=== PATIENT | male | born 1970 | race African-American/Black ===

== ENCOUNTER 2023-05-30 10:56 | Inpatient (IN) | payer MEDICAID ==
[~2023-05-30] VITALS: Ht 188 cm; Wt 127.0 kg
[~2023-05-30 10:56] MED LIST: HYDR-4174 PO; LABE200T56 PO; NIFE-129 PO
[2023-05-30] MEDS ORDERED: ASPI-1450 PO (11:02)
[2023-05-30] MEDS ORDERED: LABETALOL HCL 200 MG TABLET PO ONE (11:30)
[2023-05-30] MEDS ORDERED: HydrALAZINE HCL 20 MG/ML VIAL IVP ONE (11:30)
[2023-05-30] MEDS ORDERED: NIFEdipine 60 MG ER TABLET PO ONE (11:30)
[2023-05-30 11:41] LABS: BASOPHILS % (AUTO) 0.9 % (0.0-2.0); EOSINOPHILS % (AUTO) 1.8 % (1.0-6.0); HEMATOCRIT 39.8 % (41-53); HEMOGLOBIN 12.6 g/dL (13.5-17.5); LYMPHOCYTES % (AUTO) 32.4 % (22.0-44.0); MEAN CORPUSCULAR HEMOGLOBIN 24.4 pg (26.0-34.0); MEAN CORPUSCULAR HGB CONC 31.7 G/dL (31.0-37.0); MEAN CORPUSCULAR VOLUME 77 fL (80-100); MONOCYTES # (AUTO) 0.6 K/uL (0.1-1.0); MONOCYTES % (AUTO) 9.5 % (2.0-9.0); NEUTROPHILS # (AUTO) 3.5 K/uL (1.8-7.7); NEUTROPHILS % (AUTO) 55.4 % (40.0-70.0); PLATELET COUNT (AUTO) 156 K/uL (150-450); RED BLOOD CELL COUNT(AUTO) 5.18 MIL/uL (4.50-5.90); RED CELL DISTRIBUTION WIDTH 13.2 % (11.5-14.5); WHITE BLOOD COUNT (AUTO) 6.3 K/uL (4.5-11.0)
[2023-05-30 11:51] LABS: CALCIUM, TOTAL 8.3 mg/dL (8.8-10.5); CREATININE 1.54 mg/dL (0.60-1.30); POTASSIUM 3.2 mmol/L (3.5-5.1)
[2023-05-30 11:54] LABS: COVID AG,FIA SOURCE NASAL SWAB
[2023-05-30 12:14] LABS: SARS-COV2 (COVID) ANTIGEN,FIA Negative (Negative)
[2023-05-30] MEDS ORDERED: 0.9% SODIUM CHLORIDE 10 ML SYRINGE IVP PRN (12:45)
[2023-05-30] MEDS ORDERED: ACETAMINOPHEN 325 MG TABLET PO PRN ×2 (12:45)
[2023-05-30] MEDS ORDERED: ONDANSETRON HCL 4 MG/2 ML VIAL IVP PRN ×2 (12:45)
[2023-05-30] MEDS ORDERED: ENALAPRILAT DIHYDRATE 1.25 MG/ML VIAL IVP PRN (12:45)
[2023-05-30] MEDS ORDERED: POTASSIUM CHLORIDE 20 MEQ ER TABLET PO ONE (12:45)
[2023-05-30 15:30] VITALS: BP 155/92; PULSE 86; RESP 20; TEMP 98.1
[2023-05-30 17:54] LABS: CALCIUM, TOTAL 8.7 mg/dL (8.8-10.5); CREATININE 1.61 mg/dL (0.60-1.30); POTASSIUM 3.4 mmol/L (3.5-5.1)
[2023-05-30] MEDS ORDERED: ENALAPRILAT DIHYDRATE 2.5 MG/2 ML VIAL IVP PRN (20:00)
[2023-05-30] MEDS: LABETALOL HCL 200 MG TABLET PO SCH (20:24)
[2023-05-30 20:28] VITALS: BP 169/113; PULSE 84; RESP 18; TEMP 97.8
[2023-05-31] VITALS: BP 146/86; PULSE 87; RESP 16; TEMP 97.9
[2023-05-31 04:00] VITALS: BP 160/98; PULSE 82; RESP 18; TEMP 97.7
[2023-05-31 07:05] LABS: BASOPHILS % (AUTO) 0.7 % (0.0-2.0); EOSINOPHILS % (AUTO) 2.1 % (1.0-6.0); HEMATOCRIT 38.8 % (41-53); HEMOGLOBIN 12.3 g/dL (13.5-17.5); LYMPHOCYTES # (AUTO) 2.4 K/uL (1.0-4.8); LYMPHOCYTES % (AUTO) 32.1 % (22.0-44.0); MEAN CORPUSCULAR HEMOGLOBIN 24.6 pg (26.0-34.0); MEAN CORPUSCULAR HGB CONC 31.7 G/dL (31.0-37.0); MEAN CORPUSCULAR VOLUME 78 fL (80-100); MONOCYTES # (AUTO) 0.9 K/uL (0.1-1.0); MONOCYTES % (AUTO) 11.8 % (2.0-9.0); NEUTROPHILS % (AUTO) 53.3 % (40.0-70.0); PLATELET COUNT (AUTO) 168 K/uL (150-450); RED CELL DISTRIBUTION WIDTH 13.2 % (11.5-14.5); WHITE BLOOD COUNT (AUTO) 7.5 K/uL (4.5-11.0)
[2023-05-31 07:27] LABS: ALANINE AMINOTRANSFERASE 18 U/L (12-78); ALKALINE PHOSPHATASE 70 U/L (46-116); ANION GAP 6 mmol/L (8-16); ASPARTATE AMINOTRANSFERASE 21 U/L (15-37); BILIRUBIN,TOTAL 0.6 mg/dL (0.1-1.0); CALCIUM, TOTAL 8.3 mg/dL (8.8-10.5); CARBON DIOXIDE 28 mmol/L (22-29); CHLORIDE 105 mmol/L (98-107); CREATININE 1.37 mg/dL (0.60-1.30); GLOMERULAR FILTR. RATE CALC > 60 mL/min (>60); GLUCOSE,RANDOM 75 mg/dL (70-110); SODIUM SERUM 139 mmol/L (136-145); TOTAL PROTEIN, SERUM 6.6 g/dL (6.4-8.2); UREA NITROGEN, BLOOD 18 mg/dL (7-18)
[2023-05-31] MEDS: SODIUM CHLORIDE 0.45% 1,000 ML IV ONE ×2 (08:09→08:14)
[2023-05-31] MEDS: LABETALOL HCL 200 MG TABLET PO SCH (08:09)
[2023-05-31 08:19] VITALS: BP 183/95; PULSE 78; RESP 20; TEMP 97.9
[2023-05-31] MEDS ORDERED: LOSARTAN POTASSIUM 25 MG TABLET PO SCH (09:00)
[2023-05-31] MEDS ORDERED: NIFEdipine 60 MG ER TABLET PO SCH (09:00)
[2023-05-31 11:55] VITALS: BP 152/92; PULSE 76; RESP 18; TEMP 98.4
[2023-05-31] MEDS ORDERED: POTASSIUM CHLORIDE 20 MEQ ER TABLET PO PRN (12:30)
[2023-05-31] MEDS ORDERED: POTASSIUM CHL 10 MEQ/WATER 50 ML IV PRN (12:30)
[2023-05-31] MEDS ORDERED: LABETALOL HCL 200 MG TABLET PO SCH (21:00)
== END 2023-05-31 12:50 | disposition left against medical advice (07) | DRG 199 ==
LOC: EMS 11:15 → 5S 14:09
PROVIDERS: ADMIT Internal Medicine; ATTEND Internal Medicine
DX: I16.0 Hypertensive urgency (principal); N17.9 Acute kidney failure, unspecified; D63.8 Anemia in other chronic diseases classified elsewhere; I10 Essential (primary) hypertension; Z20.822 Contact with and (suspected) exposure to COVID-19; G47.33 Obstructive sleep apnea (adult) (pediatric); Z53.29 Procedure and treatment not carried out because of patient's decision for other reasons; E87.6 Hypokalemia; E74.39 Other disorders of intestinal carbohydrate absorption; Z91.199 Patient's noncompliance with other medical treatment and regimen due to unspecified reason; Z79.899 Other long term (current) drug therapy; Z79.82 Long term (current) use of aspirin
CPT/HCPCS: 70450; 71045; 80048; 80053; 83036; 85025; 93005; 99291; J0360; 36415-L1; 36415-TC